=== PATIENT | male | born 1940 | race Caucasian/White ===

== ENCOUNTER 2025-02-12 20:49 | Emergency (ER) | payer MEDICARE ==
[~2025-02-12] VITALS: Ht 198.1 cm; Wt 101.8 kg
[2025-02-12 21:44] LABS: PLATELET COUNT, AUTOMATED 426 10^3/uL (150-450)
[2025-02-12 22:20] LABS: CALCIUM LEVEL 9.4 MG/DL (8.3-10.6); CARBON DIOXIDE LEVEL 22.0 MMOL/L (20-31); CHLORIDE LEVEL 103.0 MMOL/L (98-107); CREATININE FOR GFR 1.2 MG/DL (0.70-1.30); GLOMERULAR FILTRATION RATE 60.8 (>35); MAGNESIUM LEVEL 2.1 MG/DL (1.8-2.4); POTASSIUM SERUM 4.6 MMOL/L (3.5-5.1); SODIUM LEVEL 139.0 MMOL/L (136-145)
[2025-02-12] MEDS: GABAPENTIN 300 MG CAP PO ONE (23:42)
[2025-02-12 23:44] VITALS: BP 163/101
[2025-02-12] MEDS: METOPROLOL SUCC. 25 MG *XL* TAB PO ONE (23:44)
[2025-02-13 00:40] LABS: CK-MB VALUE MASS 5.3 NG/ML (<3.6)
[2025-02-13 00:44] LABS: FREE T4 1.65 NG/DL (0.89-1.76)
[2025-02-13 00:56] LABS: CPK CREATINE PHOSPHOKINASE 389.0 U/L (46-171); MB/CK RELATIVE INDEX 1.36 (< OR =4)
[2025-02-13 01:19] LABS: D-DIMER QUANT 0.46 ug/mL (<0.5); INR 0.97
[2025-02-13 01:58] LABS: CK-MB VALUE MASS 5.4 NG/ML (<3.6); CPK CREATINE PHOSPHOKINASE 402.0 U/L (46-171); MB/CK RELATIVE INDEX 1.34 (< OR =4)
[2025-02-13 03:13] LABS: CK-MB VALUE MASS 5.2 NG/ML (<3.6)
[2025-02-13 03:23] LABS: CPK CREATINE PHOSPHOKINASE 399.0 U/L (46-171); MB/CK RELATIVE INDEX 1.3 (< OR =4)
[2025-02-13] MEDS: ATORVASTATIN 20 MG TAB PO ONE (03:52)
[2025-02-13] MEDS: ASPIRIN 81 MG CHEWABLE TABLET PO ONE (03:52)
[2025-02-13] MEDS: GABAPENTIN 300 MG CAP PO ONE (09:14)
[2025-02-13 09:49] VITALS: BP 146/78; TEMP 99; O2SAT 98
== END 2025-02-13 09:57 | disposition short-term general hospital (02) ==
LOC: M ED 20:49 → EDBD 20:49 → M ED 02-13 09:57
DX: I21.4 Non-ST elevation (NSTEMI) myocardial infarction (principal); R79.89 Other specified abnormal findings of blood chemistry; R55 Syncope and collapse; I44.0 Atrioventricular block, first degree; I45.10 Unspecified right bundle-branch block; I10 Essential (primary) hypertension